=== PATIENT | female | born 1950 | race Caucasian/White ===

== ENCOUNTER 2017-11-13 10:19 | Inpatient (IN) | payer MEDICARE, BC ==
[2017-11-13] VITALS (14 sets, daily range): BP systolic 116–177; BP diastolic 51–98
[~2017-11-13] VITALS: Ht 149.9 cm; Wt 68.0 kg
[~2017-11-13 10:19] MED LIST: ANAS1TAB PO; ASPI81TA52 PO; ATOR20TA PO; ATOR40TA PO; CITA-278 PO; GABA300C PO; IBUP-1984 PO; LEVO75TA PO; LOSA50TA3 PO; MULT-1180 PO
[2017-11-13] MEDS ORDERED: ondansetron/PF 4mg/2ml inj IV ONE (11:00)
[2017-11-13] MEDS ORDERED: normal saline 1000ML IV soln IVB ONE (11:00)
[2017-11-13 11:22] LABS: BASOPHILS # (AUTO) 0.1 X10'3 (0-0.2); BASOPHILS % (AUTO) 1.2 % (0-1); EOSINOPHILS % (AUTO) 0.6 % (0-6); HEMATOCRIT 36.6 % (35.0-45.0); HEMOGLOBIN 12.2 g/dl (12.0-16.0); LYMPHOCYTES # (AUTO) 1.4 X10'3 (1.1-4.8); LYMPHOCYTES % (AUTO) 18.3 % (21-51); MEAN CORPUSCULAR HGB CONC 33.4 % (33.0-36.5); MEAN CORPUSCULAR VOLUME 89.7 FL (78-98); MONOCYTES % (AUTO) 13.7 % (2-12); NEUTROPHILS # (AUTO) 5.1 X10'3 (1.8-7.7); NEUTROPHILS % (AUTO) 66.2 % (42-75); PLATELET COUNT 224 X10'3 (140-440); RED BLOOD COUNT 4.08 X10'6 (4.20-5.60); RED CELL DISTRIBUTION WIDTH 13.1 % (11.5-14.5); WHITE BLOOD COUNT 7.6 X10'3 (4.5-11.0)
[2017-11-13 11:24] LABS: CLARITY,URINE CLEAR (Clear); COLOR,URINE YELLOW (Yellow); GLUCOSE, URINE 250 mg/dl (Neg); KETONES,URINE NEGATIVE (Neg); LEUKOCYTE ESTERASE ,URINE SMALL (Neg); NITRITES, URINE NEGATIVE (Neg); OCCULT BLOOD,URINE SMALL (Neg); PROTEIN,URINE NEGATIVE (Neg); UROBILINOGEN,URINE 0.2 E.U/dL (0.2-1.0)
[2017-11-13 11:25] LABS: UA COLLECTION TYPE CLN CATCH MIDSTREAM
[2017-11-13] MEDS: morphine 4 MG/ML inj SYRINge IV PRN ×2 (11:28→16:04)
[2017-11-13 11:29] LABS: PROTHROMBIN TIME 10.2 SECONDS (9.0-12.0)
[2017-11-13 11:31] LABS: SQUAMOUS EPITHELIAL CELL,UR FEW /LPF (FEW); TRANSITIONAL EPI CELLS,URINE FEW /HPF
[2017-11-13 11:32] LABS: BACTERIA,URINE FEW /HPF (Neg); RBC,URINE 0-2 /HPF (0-2); WBC,URINE 0-4 /HPF (0-4)
[2017-11-13 11:36] LABS: ALANINE AMINOTRANSFERASE 13 U/L (12-78); ALBUMIN 3.1 G/DL (3.4-5.0); ALBUMIN/GLOBULIN RATIO 0.7 (1.1-1.5); ALKALINE PHOSPHATASE 88 IU/L (46-116); ANION GAP 11 (8-16); ASPARTATE AMINO TRANSFERASE 13 U/L (10-37); BILIRUBIN,TOTAL 0.5 MG/DL (0.1-1.0); BLOOD UREA NITROGEN 12 MG/DL (7-18); BUN/CREATININE RATIO 12.6 (6.6-38.0); CALCIUM 9.1 MG/DL (8.5-10.1); CHLORIDE 102 MMOL/L (99-107); CREATININE 0.95 MG/DL (0.40-0.90); GLUCOSE 142 MG/DL (70-104); LIPASE 157 U/L (73-393); POTASSIUM 3.6 MMOL/L (3.5-5.1); SODIUM 138 MMOL/L (135-145); TOTAL CARBON DIOXIDE 24.8 MMOL/L (24-32); TOTAL PROTEIN 7.7 G/DL (6.4-8.2); eGFR 59 ML/MIN
[2017-11-13] MEDS ORDERED: [UNRECOGNIZED DRUG - CODE] (11:43)
[2017-11-13] MEDS ORDERED: QUELT PO (11:43)
[2017-11-13] MEDS ORDERED: LISI-600 PO (11:43)
[2017-11-13] MEDS ORDERED: piperacillin/tazo 3.375gm/50ml 50 ML IV ONE (12:00)
[2017-11-13] MEDS ORDERED: magnesium 4gm in 100ml NS 100 ML IV PRN (12:25)
[2017-11-13] MEDS ORDERED: magnesium Cl slow-release 64mg tablet PO PRN (12:25)
[2017-11-13] MEDS ORDERED: magnesium 2GM in 50ml NS 50 ML IV PRN (12:25)
[2017-11-13] MEDS ORDERED: potassium Cl 40MEQ/NS 500ml 500 ML IV PRN ×2 (12:25)
[2017-11-13] MEDS ORDERED: potassium Cl 20 mEq SR tablet PO PRN ×2 (12:25)
[2017-11-13] MEDS: gabapentin 300mg capsule PO SCH ×2 (13:00→21:00)
[2017-11-13] MEDS: normal saline 1000ml 1,000 ML IV SCH ×2 (13:13→16:04)
[2017-11-13] MEDS: ondansetron/PF 4mg/2ml inj IV PRN (16:04)
[2017-11-13] MEDS ORDERED: ringers solution, lacted 1,000 ML IV SCH (19:32)
[2017-11-13] MEDS ORDERED: morphine 4 MG/ML inj SYRINge IV PRN ×2 (19:35)
[2017-11-13] MEDS ORDERED: proCHLORperazine 10 MG/2 ml inj IV PRN (19:35)
[2017-11-13] MEDS ORDERED: meperidine/PF 25mg/ml syringe IV PRN (19:35)
[2017-11-13] MEDS ORDERED: acetaminophen 1,000mg/100ml IV 100 ML IV PRN (19:35)
[2017-11-13] MEDS ORDERED: ondansetron/PF 4mg/2ml inj IV PRN (19:35)
[2017-11-13] MEDS ORDERED: fentaNYL/PF 50MCG/1 ML 2ML syringe IV PRN ×2 (19:35)
[2017-11-13] MEDS ORDERED: ROPIVAcaine 0.5% (5mg/ml) 30ml vial ONE (19:43)
[2017-11-13] MEDS ORDERED: LIDOcaine 1% 30ml preserv. free vial ONE (19:43)
[2017-11-13] MEDS: citalopram 20mg tablet PO SCH (20:00)
[2017-11-13] MEDS ORDERED: desflurane 240ml liquid inh. IH ONE (20:30)
[2017-11-13] MEDS ORDERED: fentaNYL/PF 50MCG/1 ML 2ML syringe ONE (20:41)
[2017-11-13] MEDS ORDERED: midazolam 2 mg/2 ml injection ONE (20:50)
[2017-11-13] MEDS ORDERED: LIDOcaine 2% 5ml jelly ONE (20:57)
[2017-11-13] MEDS ORDERED: ceFOXitin 1000 MG inj ONE ×2 (20:57)
[2017-11-13] MEDS ORDERED: rocuronium 10mg/ml inj IV ONE (20:57)
[2017-11-13] MEDS ORDERED: dexamethasone sod phosphate 4mg/ml inj. ONE (20:58)
[2017-11-13] MEDS ORDERED: propofol inj 20 ML IV ONE (20:58)
[2017-11-13] MEDS ORDERED: LIDOcaine 2% (20mg/ml) 5ml vial ONE (20:58)
[2017-11-13] MEDS ORDERED: ondansetron/PF 4mg/2ml inj ONE (20:58)
[2017-11-13] MEDS ORDERED: glycopyrrolate 0.2mg/ml inj ONE (21:25)
[2017-11-13] MEDS ORDERED: neostigmine methylsulfate 1 MG/ML 10ml vial ONE (21:25)
[2017-11-13] MEDS ORDERED: HYDROcodone/acetaminophen 5mg/325mg tablet PO PRN (21:55)
[2017-11-13] MEDS ORDERED: hydrALAZINE 20mg/ml inj. IV PRN (23:20)
[2017-11-13] MEDS: HYDROmorphone 1 mg/ml syringe IV PRN (23:24)
[2017-11-14] VITALS (7 sets, daily range): BP systolic 114–145; BP diastolic 50–79
[2017-11-14] MEDS: normal saline 1000ml 1,000 ML IV SCH ×2 (02:09→14:22)
[2017-11-14 05:23] LABS: BASOPHILS % (AUTO) 0.2 % (0-1); EOSINOPHILS # (AUTO) 0.1 X10'3 (0-0.9); EOSINOPHILS % (AUTO) 0.8 % (0-6); HEMATOCRIT 32.9 % (35.0-45.0); HEMOGLOBIN 11.1 g/dl (12.0-16.0); LYMPHOCYTES # (AUTO) 0.7 X10'3 (1.1-4.8); MEAN CORPUSCULAR HEMOGLOBIN 30.4 PG (27.0-31.0); MEAN CORPUSCULAR HGB CONC 33.9 % (33.0-36.5); MEAN CORPUSCULAR VOLUME 89.7 FL (78-98); MONOCYTES # (AUTO) 0.2 X10'3 (0-0.9); MONOCYTES % (AUTO) 2.3 % (2-12); NEUTROPHILS # (AUTO) 7.3 X10'3 (1.8-7.7); NEUTROPHILS % (AUTO) 88.7 % (42-75); PLATELET COUNT 203 X10'3 (140-440); RED BLOOD COUNT 3.67 X10'6 (4.20-5.60); RED CELL DISTRIBUTION WIDTH 13.9 % (11.5-14.5); WHITE BLOOD COUNT 8.3 X10'3 (4.5-11.0)
[2017-11-14 05:43] LABS: ALBUMIN 2.5 G/DL (3.4-5.0); ANION GAP 10 (8-16); BLOOD UREA NITROGEN 12 MG/DL (7-18); BUN/CREATININE RATIO 12.4 (6.6-38.0); CALCIUM 8.4 MG/DL (8.5-10.1); CHLORIDE 108 MMOL/L (99-107); CREATININE 0.97 MG/DL (0.40-0.90); GLUCOSE 158 MG/DL (70-104); MAGNESIUM 1.7 MG/DL (1.5-2.4); POTASSIUM 4.4 MMOL/L (3.5-5.1); SODIUM 141 MMOL/L (135-145); TOTAL CARBON DIOXIDE 22.9 MMOL/L (24-32); eGFR 57 ML/MIN
[2017-11-14] MEDS: K and/or MAG REPLACEMENT MC SCH (07:18)
[2017-11-14] MEDS: multivitamins, therapeutics tablet PO SCH (07:33)
[2017-11-14] MEDS: gabapentin 300mg capsule PO SCH ×3 (07:34→21:00)
[2017-11-14] MEDS: citalopram 20mg tablet PO SCH ×2 (07:34→19:50)
[2017-11-14] MEDS: aspirin 81mg tablet.DR PO SCH (07:34)
[2017-11-14] MEDS: levoTHYROXINE 75mcg tablet PO SCH (07:34)
[2017-11-14] MEDS ORDERED: anastrozole 1 MG tablet PO SCH (08:00)
[2017-11-14] MEDS: anastrozole 1 MG tablet PO SCH (09:00)
[2017-11-14] MEDS: HYDROmorphone 1 mg/ml syringe IV PRN (14:30)
[2017-11-14] MEDS: ondansetron/PF 4mg/2ml inj IV PRN (14:34)
[2017-11-14] MEDS: piperacillin/tazo 3.375gm/50ml 50 ML IV SCH ×2 (17:02→21:16)
[2017-11-15] VITALS: BP 137/93
[2017-11-15] MEDS: piperacillin/tazo 3.375gm/50ml 50 ML IV SCH ×3 (02:21→14:03)
[2017-11-15 05:52] LABS: BASOPHILS % (AUTO) 0.1 % (0-1); EOSINOPHILS # (AUTO) 0.1 X10'3 (0-0.9); EOSINOPHILS % (AUTO) 1.4 % (0-6); HEMATOCRIT 29.5 % (35.0-45.0); HEMOGLOBIN 10.1 g/dl (12.0-16.0); LYMPHOCYTES # (AUTO) 1.6 X10'3 (1.1-4.8); LYMPHOCYTES % (AUTO) 17.1 % (21-51); MEAN CORPUSCULAR HEMOGLOBIN 30.4 PG (27.0-31.0); MEAN CORPUSCULAR HGB CONC 34.1 % (33.0-36.5); MEAN CORPUSCULAR VOLUME 89.2 FL (78-98); MEAN PLATELET VOLUME 7.1 FL (7.4-10.4); MONOCYTES # (AUTO) 0.7 X10'3 (0-0.9); MONOCYTES % (AUTO) 7.2 % (2-12); NEUTROPHILS # (AUTO) 6.7 X10'3 (1.8-7.7); NEUTROPHILS % (AUTO) 74.2 % (42-75); PLATELET COUNT 210 X10'3 (140-440); RED BLOOD COUNT 3.31 X10'6 (4.20-5.60); RED CELL DISTRIBUTION WIDTH 13.8 % (11.5-14.5); WHITE BLOOD COUNT 9.1 X10'3 (4.5-11.0)
[2017-11-15] MEDS: normal saline 1000ml 1,000 ML IV SCH (05:59)
[2017-11-15 06:07] LABS: ALBUMIN 2.3 G/DL (3.4-5.0); ANION GAP 10 (8-16); BLOOD UREA NITROGEN 12 MG/DL (7-18); BUN/CREATININE RATIO 12.1 (6.6-38.0); CALCIUM 8.2 MG/DL (8.5-10.1); CHLORIDE 108 MMOL/L (99-107); CREATININE 0.99 MG/DL (0.40-0.90); GLUCOSE 100 MG/DL (70-104); MAGNESIUM 1.9 MG/DL (1.5-2.4); SODIUM 142 MMOL/L (135-145); TOTAL CARBON DIOXIDE 24.1 MMOL/L (24-32); eGFR 56 ML/MIN
[2017-11-15 07:11] VITALS: BP 155/50
[2017-11-15] MEDS: citalopram 20mg tablet PO SCH (08:00)
[2017-11-15] MEDS: gabapentin 300mg capsule PO SCH ×2 (08:00→14:03)
[2017-11-15] MEDS: multivitamins, therapeutics tablet PO SCH (08:00)
[2017-11-15] MEDS: aspirin 81mg tablet.DR PO SCH (08:00)
[2017-11-15] MEDS: K and/or MAG REPLACEMENT MC SCH (08:00)
[2017-11-15] MEDS: levoTHYROXINE 75mcg tablet PO SCH (08:23)
[2017-11-15 11:00] VITALS: BP 148/66
[2017-11-15] MEDS: anastrozole 1 MG tablet PO SCH (11:25)
[2017-11-15] MEDS ORDERED: HYDR-569 PO (12:53)
[2017-11-15] MEDS ORDERED: lactobacillus rhamnosus 10,000 MMU CELLS/CAPSULE PO SCH (20:00)
== END 2017-11-15 17:48 | disposition home or self-care (01) | DRG 342 ==
LOC: ER 10:19 → ED HOLD 12:25 → SUR 3N 15:47
PROVIDERS: ADMIT Internal Medicine; ATTEND Surgery
PROC: 0DTJ4ZZ Resection of Appendix, Percutaneous Endoscopic Approach (ICD-10-PCS; principal; 2017-11-13 20:30)
DX: K35.80 Unspecified acute appendicitis (principal); E44.0 Moderate protein-calorie malnutrition; I73.9 Peripheral vascular disease, unspecified; I10 Essential (primary) hypertension; F32.9 Major depressive disorder, single episode, unspecified; I25.10 Atherosclerotic heart disease of native coronary artery without angina pectoris; E78.00 Pure hypercholesterolemia, unspecified; E03.9 Hypothyroidism, unspecified; Z88.2 Allergy status to sulfonamides; Z88.8 Allergy status to other drugs, medicaments and biological substances; Z79.82 Long term (current) use of aspirin; Z79.899 Other long term (current) drug therapy; Z87.891 Personal history of nicotine dependence; Z82.5 Family history of asthma and other chronic lower respiratory diseases; Z82.49 Family history of ischemic heart disease and other diseases of the circulatory system; Z68.30 Body mass index [BMI] 30.0-30.9, adult
CPT/HCPCS: 36415; 74176; 80048; 80053; 81001; 83690; 83735; 85025; 85610; 87070; 87088; 88304; 93005; 96361; 96365; 96375; 99285; A7000; J0694; J1100; J1170; J2001; J2250; J2270; J2405; J2543; J2704; J2710; J2795; J3010; J3490; J7030; J7120

== ENCOUNTER 2019-04-19 10:38 | Emergency (ER) | payer MEDICARE, BC ==
[~2019-04-19] VITALS: Ht 149.9 cm; Wt 68.2 kg
[~2019-04-19 10:38] MED LIST changes: -ATOR20TA PO; -ATOR40TA PO; -CITA-278 PO; +CITA20TA28 PO; +HYDR-4383 PO; +LISI-600 PO; -LOSA50TA3 PO; +QUELT PO
[2019-04-19 11:18] LABS: BASOPHILS % (AUTO) 0.8 % (0-1); EOSINOPHILS # (AUTO) 0.2 X10'3 (0-0.9); EOSINOPHILS % (AUTO) 2.9 % (0-6); HEMATOCRIT 36.8 % (35.0-45.0); HEMOGLOBIN 12.7 g/dl (12.0-16.0); LYMPHOCYTES # (AUTO) 1.4 X10'3 (1.1-4.8); LYMPHOCYTES % (AUTO) 25.3 % (21-51); MEAN CORPUSCULAR HEMOGLOBIN 30.9 PG (27.0-31.0); MEAN CORPUSCULAR HGB CONC 34.5 g/dL (33.0-36.5); MEAN CORPUSCULAR VOLUME 89.5 FL (78-98); MEAN PLATELET VOLUME 6.9 FL (7.4-10.4); MONOCYTES # (AUTO) 0.8 X10'3 (0-0.9); MONOCYTES % (AUTO) 13.7 % (2-12); NEUTROPHILS # (AUTO) 3.2 X10'3 (1.8-7.7); NEUTROPHILS % (AUTO) 57.3 % (42-75); PLATELET COUNT 270 X10'3 (140-440); RED BLOOD COUNT 4.11 X10'6 (4.20-5.60); RED CELL DISTRIBUTION WIDTH 13.5 % (11.5-14.5); WHITE BLOOD COUNT 5.6 X10'3 (4.5-11.0)
[2019-04-19] MEDS ORDERED: aspirin 81mg tab.chew PO ONE (11:25)
[2019-04-19 11:28] LABS: ALANINE AMINOTRANSFERASE 17 U/L (12-78); ALBUMIN 3.5 G/DL (3.4-5.0); ALBUMIN/GLOBULIN RATIO 0.8 (1.1-1.5); ALKALINE PHOSPHATASE 105 IU/L (46-116); ANION GAP 9 (8-16); ASPARTATE AMINO TRANSFERASE 21 U/L (10-37); BILIRUBIN,TOTAL 0.4 MG/DL (0.1-1.0); BLOOD UREA NITROGEN 12 MG/DL (7-18); BUN/CREATININE RATIO 13.2 (6.6-38.0); CHLORIDE 98 MMOL/L (99-107); CREATININE 0.91 MG/DL (0.40-0.90); GLUCOSE 91 MG/DL (70-104); POTASSIUM 3.8 MMOL/L (3.5-5.1); SODIUM 134 MMOL/L (135-145); TOTAL CARBON DIOXIDE 26.7 MMOL/L (24-32); TOTAL PROTEIN 7.9 G/DL (6.4-8.2); eGFR 61 ML/MIN
[2019-04-19] MEDS ORDERED: iohexol 350MG/ML 100ml bottle IV ONE (12:37)
--- NOTE | 2019-04-19 12:53 | NUR ---
To CT at this time via [place]. Family at bedside, no signs of distress noted.
--- NOTE | 2019-04-19 13:09 | NUR ---
PATIENT BACK FROM CT AT THIS TIME.
[2019-04-19] MEDS ORDERED: AMOX-419 PO (15:50)
[2019-04-19] MEDS ORDERED: METH4TAB3 PO (15:59)
[2019-04-19 16:04] VITALS: BP 155/76
== END 2019-04-19 16:07 | disposition home or self-care (01) ==
LOC: ER 10:39
DX: J32.9 Chronic sinusitis, unspecified (principal); I65.23 Occlusion and stenosis of bilateral carotid arteries; I25.10 Atherosclerotic heart disease of native coronary artery without angina pectoris; I10 Essential (primary) hypertension; I25.2 Old myocardial infarction; Z98.890 Other specified postprocedural states; Z88.2 Allergy status to sulfonamides; Z79.82 Long term (current) use of aspirin; Z79.899 Other long term (current) drug therapy
CPT/HCPCS: 36415; 70496; 70498; 71045; 80053; 83880; 84484; 85025; 93005; 99285; Q9967